=== PATIENT | male | born 1945 | race Caucasian/White ===

== ENCOUNTER → 2021-01-12 12:41 | Outpatient (BNVA) | payer OTHER, SELFPAY | PROVIDERS: Referring Provider Nurse Practitioner Family; Visit Provider Nurse Practitioner | DX: M54.81 Occipital neuralgia (principal); R51.9 Headache, unspecified | CPT/HCPCS: 99204; 99205 ==

== ENCOUNTER → 2024-07-03 10:40 | Outpatient (BNVA) | payer OTHER, SELFPAY | PROVIDERS: PCP Neurological Surgery; Referring Provider Registered Nurse; Visit Provider Specialist | DX: M54.81 Occipital neuralgia (principal); G43.711 Chronic migraine without aura, intractable, with status migrainosus; G52.1 Disorders of glossopharyngeal nerve; G24.3 Spasmodic torticollis | CPT/HCPCS: 64405; 64450; 99204 ==

== ENCOUNTER → 2024-10-02 10:39 | Outpatient (BNVA) | payer OTHER, SELFPAY | PROVIDERS: PCP Neurological Surgery; Visit Provider Specialist | DX: G43.711 Chronic migraine without aura, intractable, with status migrainosus (principal); M54.81 Occipital neuralgia; G52.1 Disorders of glossopharyngeal nerve; G24.3 Spasmodic torticollis | CPT/HCPCS: 99214 ==